=== PATIENT | male | born 1965 | race Caucasian/White ===

== ENCOUNTER → 2017-04-11 | Outpatient (CLI) | payer OTHER ==
[2017-04-12 11:45] LABS: White-Faced Hornet IgE 2.73 kU/L (<0.35); White-Faced Hornet IgE Class CLASS II
[2017-04-12 11:46] LABS: Yellow Jacket IgE Class CLASS II
[2017-04-12 11:47] LABS: Paper Wasp IgE 2.73 kU/L (<0.35); Paper Wasp IgE Class CLASS II
[2017-04-12 11:48] LABS: Honey IgE <0.35 kU/L (<0.35); Honey IgE Class CLASS 0; Yellow Hornet IgE 1.15 kU/L (<0.35); Yellow Hornet IgE Class CLASS II
== END | disposition home or self-care (01) ==
LOC: LABWHC1 14:33
PROVIDERS: ATTEND Allergy & Immunology
DX: T63.481A Toxic effect of venom of other arthropod, accidental (unintentional), initial encounter (principal)
CPT/HCPCS: 36415; 86003

== ENCOUNTER 2018-02-08 18:52 | Emergency (ER) | payer OTHER ==
[2018-02-08 19:10] VITALS: BP 172/67; PULSE 107; RESP 18; TEMP 97.8
[2018-02-08] MEDS ORDERED: HYDROcodone/APAP 5-325MG 1 EACH TAB PO STA (19:11)
--- NOTE | 2018-02-08 19:32 | XR ---
EXAMINATION TYPE: XR finger RT DATE OF EXAM: 02/08/2018 COMPARISON: NONE HISTORY: Laceration TECHNIQUE: 3 views FINDINGS: I see no fracture nor dislocation. There are few soft tissue air bubbles at the base of the proximal phalanx consistent with laceration. I see no radiopaque foreign body. IMPRESSION: Soft tissue air. No fracture seen.
--- NOTE | 2018-02-08 19:32 | ED ---
General Adult HPI - General Chief complaint: Wound/Laceration Stated complaint: LACERATION RT THUMB Time Seen by Provider: 02/08/18 18:57 Source: patient, RN notes reviewed Mode of arrival: ambulatory Limitations: no limitations - History of Present Illness Initial comments: 52-year-old male presents to the emergency department for chief complaint of laceration to the right thumb 1 hour. Patient states he was using a hole saw while remodeling his kitchen when it cut the dorsal aspect of his right thumb. Patient states it is painful but he is able to move the thumb. Patient states his tetanus is up to date. Patient denies any other injuries from the hole saw. Patient states he came immediately to the emergency department. He has not yet cleaned it out or taken anything for pain besides Motrin. Patient denies any other complaints at this time including shortness of breath, chest pain, abdominal pain, nausea or vomiting. - Related Data Allergies Allergy/AdvReac Type Severity Reaction Status Date / Time iodine Allergy Unknown Verified 02/08/18 19:05 Review of Systems ROS Statement: Those systems with pertinent positive or pertinent negative responses have been documented in the HPI. ROS Other: All systems not noted in ROS Statement are negative. Past Medical History Past Medical History: Dementia, Hyperlipidemia, Hypertension Additional Past Medical History / Comment(s): restless leg syndrome History of Any Multi-Drug Resistant Organisms: None Reported Past Surgical History: Adenoidectomy, Bowel Resection, Tonsillectomy Past Psychological History: No Psychological Hx Reported Smoking Status: Never smoker Past Alcohol Use History: Occasional Past Drug Use History: None Reported General Exam Limitations: no limitations Respiratory exam: Present: normal lung sounds bilaterally. Absent: respiratory distress, wheezes, rales, rhonchi, stridor Cardiovascular Exam: Present: regular rate, normal rhythm, normal heart sounds. Absent: systolic murmur, diastolic murmur, rubs, gallop, clicks Extremities exam: Present: full ROM (Full range of motion of the right thumb), tenderness (Tenderness of the right thumb), normal capillary refill (Refill less than 2 seconds in the right thumb. Radial pulse 2+), other (4 cm laceration to the middle phalanx of the right thumb. Deep structures intact.). Absent: joint swelling Course Vital Signs 02/08/18 19:07 Temperature 97.8 F Pulse Rate 107 H Respiratory 18 Rate Blood Pressure 172/67 O2 Sat by Pulse 97 Oximetry Procedures - Procedures Initial comment: Body area: Dorsal right thumb Laceration length: 4 cm Foreign bodies: no foreign bodies Tendon involvement: none Nerve involvement: none Vascular damage: no Anesthesia: local infiltration Local anesthetic: 4 mL 1% lidocaine Preparation: Patient was prepped and draped in the usual sterile fashion. Irrigation solution: saline Irrigation method: Saline jet lavage Skin closure:5-0 Ethilon using sterile technique Number of sutures: 9 Technique: interupted Dressing: antibiotic ointment/ gauze Patient tolerance: Patient tolerated the procedure well with no immediate complications. Medical Decision Making - Medical Decision Making 52-year-old male presents to the emergency department for a chief complaint of laceration of the right dorsal thumb. Patient states it happened about an hour ago when he was working with a hole saw. Patient states his tetanus is up to date. On exam neurovascular intact and patient has range of motion of the right thumb. Patient is left-handed. X-ray was performed which showed no acute fractures or dislocations. The laceration was soaked with soap and water and irrigated with saline jet lavage. It was sutured with 9 simple interrupted sutures. Patient will return in 10 days to have suture removed. He will return earlier if he notices any signs of infection or worsening symptoms. 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 Disposition Clinical Impression: Laceration Disposition: HOME SELF-CARE Condition: Good Instructions: Care For Your Stitches (ED), Laceration (ED) Additional Instructions: Please return to the emergency Department if he notices any signs of infection or worsening symptoms. Otherwise follow-up with primary care provider. Take Motrin or Tylenol for pain relief. Return in 10 days to have sutures removed. Is patient prescribed a controlled substance at d/c from ED?: No Referrals: Evin Rodriguez MD [Primary Care Provider] - 1-2 days Time of Disposition: 20:31
== END 2018-02-08 20:48 | disposition home or self-care (01) ==
LOC: EC 18:52
DX: S61.011A Laceration without foreign body of right thumb without damage to nail, initial encounter (principal); Z91.048 Other nonmedicinal substance allergy status; W26.8XXA Contact with other sharp object(s), not elsewhere classified, initial encounter; Y93.89 Activity, other specified; Y92.000 Kitchen of unspecified non-institutional (private) residence as the place of occurrence of the external cause
CPT/HCPCS: 12002; 99283

== ENCOUNTER → 2018-05-22 | Outpatient (CLI) | payer OTHER ==
--- NOTE | 2018-05-22 13:44 | EST ---
EXERCISE STRESS DATE OF SERVICE: May 22, 2018. INDICATION: Chest discomfort. AGE: 52 SEX: M HT: 5 feet 8 inches WT: 200 PROTOCOL: Stress Echo STAGE: III DURATION OF EXERCISE: 9:31 HEART RATE REST: 81 BLOOD PRESSURE REST: 123/71 MAXIMUM HEART RATE ACHIEVED: 152 MAXIMUM BLOOD PRESSURE: 186/110 85% MPHR: 144 100% MPHR: 169 METS: 11.1 CLINICAL INFORMATION: STRESS DATA: Pretesting physical examination showed a heart rate of 81, pressure is 123/71 mmHg. Baseline EKG showed sinus rhythm. The patient exercised on the treadmill according to Mike protocol for a total of 9 minutes and achieved 11.1 METS. Max heart rate was 152, which is about 89% of maximum predicted heart rate. Maximum blood pressure was 186/110 mmHg. Clinically, the patient did not have any symptoms of chest pain or chest discomfort during the testing or recovery. The EKG did not show any significant ST or T-wave abnormalities concerning for ischemia. ECHOCARDIOGRAM IMAGES: On echocardiogram images from parasternal long axis view, parasternal short axis view, apical 4 chamber and apical 2 chamber view were obtained as a baseline images, at peak heart rate, as well as on recovery. The echocardiogram images showed good augmentation in the left ventricular systolic function without any evidence of wall motion abnormalities concerning for ischemia. CONCLUSION: 1. Excellent exercise capacity. 2. Normal EKG in response to exercise. 3. Normal echocardiogram in response to exercise. 4. Essentially normal stress echocardiogram for the patient. MMODL / IJN: [id number] /
== END | disposition home or self-care (01) ==
LOC: RADNMMAIN 08:53
PROVIDERS: ATTEND Family Medicine
DX: E78.5 Hyperlipidemia, unspecified (principal)
CPT/HCPCS: 93351

== ENCOUNTER 2020-01-08 12:40 | Emergency (ER) | payer OTHER ==
[2020-01-08] MEDS ORDERED: SODIUM CHLORIDE 0.9% 500 ML 500 ML IV STA (13:28)
[2020-01-08 13:43] LABS: Basophils # (A) 0.1 k/uL (0-0.2); Basophils % (A) 1 %; Eosinophils # (A) 0.2 k/uL (0-0.7); Eosinophils % (A) 3 %; HCT 49.4 % (39.0-53.0); HGB 16.9 gm/dL (13.0-17.5); Lymphocytes # (A) 1.8 k/uL (1.0-4.8); Lymphocytes % (A) 26 %; MCH 33.3 pg (25.0-35.0); MCHC 34.3 g/dL (31.0-37.0); MCV 97.2 fL (80.0-100.0); Mean Platelet Volume 8.4; Monocytes # (A) 0.6 k/uL (0-1.0); Monocytes % (A) 9 %; Neutrophils % (A) 59 %; Platelet Count 186 k/uL (150-450); RBC 5.09 m/uL (4.30-5.90); RDW 12.6 % (11.5-15.5); WBC 6.8 k/uL (3.8-10.6)
[2020-01-08 14:07] LABS: ALT 28 U/L (4-49); AST 28 U/L (17-59); African American GFR (CKD) >90 (>60 ml/min/1.73 sqM); Albumin 4.6 g/dL (3.5-5.0); Alkaline Phosphatase 67 U/L (38-126); Anion Gap 11 mmol/L; Blood Urea Nitrogen 18 mg/dL (9-20); Calcium 9.8 mg/dL (8.4-10.2); Carbon Dioxide 22 mmol/L (22-30); Chloride 104 mmol/L (98-107); Glucose 145 mg/dL (74-99); Magnesium 2.1 mg/dL (1.6-2.3); Non-African American GFR(CKD) >90 (>60 ml/min/1.73 sqM); Potassium 4.3 mmol/L (3.5-5.1); Sodium 137 mmol/L (137-145); Total Bilirubin 0.3 mg/dL (0.2-1.3); Total Protein 7.4 g/dL (6.3-8.2)
--- NOTE | 2020-01-08 14:11 | XR ---
EXAMINATION TYPE: XR chest 1V DATE OF EXAM: 01/08/2020 COMPARISON: NONE HISTORY: Difficulty breathing TECHNIQUE: Single frontal view of the chest is obtained. FINDINGS: There is no focal air space opacity, pleural effusion, or pneumothorax seen. The cardiac silhouette size is within normal limits. The osseous structures are intact. There are overlying car diac leads. IMPRESSION: No acute process.
--- NOTE | 2020-01-08 14:20 | ED ---
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 Patient states given this patient's Recent Ctr., Hospital none of which were positive for COVID as as of now. Patient states he has been sick for 3 weeks been on antibiotics and it has not helped so his primary medical care doctor sent into the emergency department. Patient denies any fever or chills. Patient states he is feeling short of breath. Patient states he does have chest pain with coughing patient states he has not coughed up any sputum. Patient denies any palpitations per patient denies abdominal pain patient denies nausea vomiting diarrhea. His any swelling to the legs or calf tenderness. - Related Data Home Medications Medication Instructions Recorded Confirmed Albuterol Sulfate [Proair Hfa] 1 - 2 puff INHALATION Q6HR PRN 01/08/20 01/08/20 Ascorbic Acid [Vitamin C] 1,000 mg PO HS 01/08/20 01/08/20 Atorvastatin [Lipitor] 40 mg PO HS 01/08/20 01/08/20 Cetirizine HCl [Zyrtec] 10 mg PO DAILY 01/08/20 01/08/20 Cholecalciferol [Vitamin D3 (25 1,000 unit PO DAILY 01/08/20 01/08/20 Mcg = 1000 Iu)] Dapagliflozin Propanediol [Farxiga] 10 mg PO HS 01/08/20 01/08/20 Insulin Detemir [Levemir Flextouch] 40 units SQ HS 01/08/20 01/08/20 LORazepam [Ativan] 1 mg PO HS PRN 01/08/20 01/08/20 Lisinopril 20 mg PO DAILY 01/08/20 01/08/20 Montelukast Sodium [Singulair] 10 mg PO HS 01/08/20 01/08/20 Oxymetazoline 0.05% Nasl [place] 2 spray EA NOSTRIL HS PRN 01/08/20 01/08/20 [Afrin 0.05% Nasal [place]] Saw [place] 160 mg PO BID 01/08/20 01/08/20 Ubidecarenone [Co Q-10] 100 mg PO HS 01/08/20 01/08/20 metFORMIN HCL ER [Glucophage Xr] 500 mg PO BID 01/08/20 01/08/20 sitaGLIPtin [Januvia] 100 mg PO HS 01/08/20 01/08/20 Allergies Allergy/AdvReac Type Severity Reaction Status Date / Time iodine Allergy Unknown Verified 01/08/20 14:47 Review of Systems ROS Statement: Those systems with pertinent positive or pertinent negative responses have been documented in the HPI. ROS Other: All systems not noted in ROS Statement are negative. Past Medical History Past Medical History: Diabetes Mellitus, Hyperlipidemia, Hypertension Additional Past Medical History / Comment(s): restless leg syndrome History of Any Multi-Drug Resistant Organisms: None Reported Past Surgical History: Adenoidectomy, Bowel Resection, Tonsillectomy Past Psychological History: No Psychological Hx Reported Smoking Status: Never smoker Past Alcohol Use History: Occasional Past Drug Use History: None Reported General Exam - General Exam Comments Initial Comments: GENERAL: Patient is well-developed and well-nourished. Patient is nontoxic and well- hydrated and is in no acute distress. ENT: Neck is soft and supple. No significant lymphadenopathy is noted. Oropharynx is clear. Moist mucous membranes. Neck has full range of motion without eliciting any pain. EYES: The sclera were anicteric and conjunctiva were pink and moist. Extraocular movements were intact and pupils were equal round and reactive to light. Eyelids were unremarkable. PULMONARY: Unlabored respirations. Good breath sounds bilaterally. No audible rales rhonchi or wheezing was noted. CARDIOVASCULAR: There is a regular rate and rhythm without any murmurs gallops or rubs. ABDOMEN: Soft and nontender with normal bowel sounds. SKIN: Skin is clear with no lesions or rashes and otherwise unremarkable. NEUROLOGIC: Patient is alert and oriented x3. Cranial nerves II through XII are grossly intact. Motor and sensory are also intact. Normal speech, volume and content. Symmetrical smile. MUSCULOSKELETAL: Normal extremities with adequate strength and full range of motion. LYMPHATICS: No significant lymphadenopathy is noted PSYCHIATRIC: Normal psychiatric evaluation. Limitations: no limitations Course Vital Signs 01/08/20 01/08/20 12:41 15:09 Temperature 98.3 F 97.8 F Pulse Rate 95 90 Respiratory 20 18 Rate Blood Pressure 169/101 128/86 O2 Sat by Pulse 98 100 Oximetry Medical Decision Making - Medical Decision Making EKG shows normal sinus rhythm at 92 bpm NC interval 146 QRS is 78 QT interval 360 QTC is 445. Patient's EKG shows no ST segment elevation or depression. Chest x-ray shows no acute abnormality. - Lab Data Result diagrams: 01/08/20 13:15 01/08/20 13:15 Lab Results 01/08/20 01/08/20 01/08/20 Range/Units 13:15 13:15 13:15 WBC 6.8 (3.8-10.6) k/uL RBC 5.09 (4.30-5.90) m/uL Hgb 16.9 (13.0-17.5) gm/dL Hct 49.4 (39.0-53.0) % MCV 97.2 (80.0-100.0) fL MCH 33.3 (25.0-35.0) pg MCHC 34.3 (31.0-37.0) g/dL RDW 12.6 (11.5-15.5) % Plt Count 186 (150-450) k/uL Neutrophils % 59 % Lymphocytes % 26 % Monocytes % 9 % Eosinophils % 3 % Basophils % 1 % Neutrophils # 4.0 (1.3-7.7) k/uL Lymphocytes # 1.8 (1.0-4.8) k/uL Monocytes # 0.6 (0-1.0) k/uL Eosinophils # 0.2 (0-0.7) k/uL Basophils # 0.1 (0-0.2) k/uL PT 9.8 (9.0-12.0) sec INR 0.9 (<1.2) APTT 24.7 (22.0-30.0) sec D-Dimer 0.23 (<0.60) mg/L FEU Sodium 137 (137-145) mmol/L Potassium 4.3 (3.5-5.1) mmol/L Chloride 104 (98-107) mmol/L Carbon Dioxide 22 (22-30) mmol/L Anion Gap 11 mmol/L BUN 18 (9-20) mg/dL Creatinine 0.83 (0.66-1.25) mg/dL Est GFR (CKD-EPI)AfAm >90 (>60 ml/min/1.73 sqM) Est GFR (CKD-EPI)NonAf >90 (>60 ml/min/1.73 sqM) Glucose 145 H (74-99) mg/dL Plasma Lactic Acid Eddie (0.7-2.0) mmol/L Calcium 9.8 (8.4-10.2) mg/dL Magnesium 2.1 (1.6-2.3) mg/dL Total Bilirubin 0.3 (0.2-1.3) mg/dL AST 28 (17-59) U/L ALT 28 (4-49) U/L Alkaline Phosphatase 67 (38-126) U/L Troponin I (0.000-0.034) ng/mL NT-Pro-B Natriuret Pep pg/mL Total Protein 7.4 (6.3-8.2) g/dL Albumin 4.6 (3.5-5.0) g/dL Group A Strep Rapid (Negative) 01/08/20 01/08/20 01/08/20 Range/Units 13:15 13:15 13:15 WBC (3.8-10.6) k/uL RBC (4.30-5.90) m/uL Hgb (13.0-17.5) gm/dL Hct (39.0-53.0) % MCV (80.0-100.0) fL MCH (25.0-35.0) pg MCHC (31.0-37.0) g/dL RDW (11.5-15.5) % Plt Count (150-450) k/uL Neutrophils % % Lymphocytes % % Monocytes % % Eosinophils % % Basophils % % Neutrophils # (1.3-7.7) k/uL Lymphocytes # (1.0-4.8) k/uL Monocytes # (0-1.0) k/uL Eosinophils # (0-0.7) k/uL Basophils # (0-0.2) k/uL PT (9.0-12.0) sec INR (<1.2) APTT (22.0-30.0) sec D-Dimer (<0.60) mg/L FEU Sodium (137-145) mmol/L Potassium (3.5-5.1) mmol/L Chloride (98-107) mmol/L Carbon Dioxide (22-30) mmol/L Anion Gap mmol/L BUN (9-20) mg/dL Creatinine (0.66-1.25) mg/dL Est GFR (CKD-EPI)AfAm (>60 ml/min/1.73 sqM) Est GFR (CKD-EPI)NonAf (>60 ml/min/1.73 sqM) Glucose (74-99) mg/dL Plasma Lactic Acid Eddie 1.6 (0.7-2.0) mmol/L Calcium (8.4-10.2) mg/dL Magnesium (1.6-2.3) mg/dL Total Bilirubin (0.2-1.3) mg/dL AST (17-59) U/L ALT (4-49) U/L Alkaline Phosphatase (38-126) U/L Troponin I <0.012 (0.000-0.034) ng/mL NT-Pro-B Natriuret Pep 31 pg/mL Total Protein (6.3-8.2) g/dL Albumin (3.5-5.0) g/dL Group A Strep Rapid (Negative) 01/08/20 Range/Units 13:15 WBC (3.8-10.6) k/uL RBC (4.30-5.90) m/uL Hgb (13.0-17.5) gm/dL Hct (39.0-53.0) % MCV (80.0-100.0) fL MCH (25.0-35.0) pg MCHC (31.0-37.0) g/dL RDW (11.5-15.5) % Plt Count (150-450) k/uL Neutrophils % % Lymphocytes % % Monocytes % % Eosinophils % % Basophils % % Neutrophils # (1.3-7.7) k/uL Lymphocytes # (1.0-4.8) k/uL Monocytes # (0-1.0) k/uL Eosinophils # (0-0.7) k/uL Basophils # (0-0.2) k/uL PT (9.0-12.0) sec INR (<1.2) APTT (22.0-30.0) sec D-Dimer (<0.60) mg/L FEU Sodium (137-145) mmol/L Potassium (3.5-5.1) mmol/L Chloride (98-107) mmol/L Carbon Dioxide (22-30) mmol/L Anion Gap mmol/L BUN (9-20) mg/dL Creatinine (0.66-1.25) mg/dL Est GFR (CKD-EPI)AfAm (>60 ml/min/1.73 sqM) Est GFR (CKD-EPI)NonAf (>60 ml/min/1.73 sqM) Glucose (74-99) mg/dL Plasma Lactic Acid Eddie (0.7-2.0) mmol/L Calcium (8.4-10.2) mg/dL Magnesium (1.6-2.3) mg/dL Total Bilirubin (0.2-1.3) mg/dL AST (17-59) U/L ALT (4-49) U/L Alkaline Phosphatase (38-126) U/L Troponin I (0.000-0.034) ng/mL NT-Pro-B Natriuret Pep pg/mL Total Protein (6.3-8.2) g/dL Albumin (3.5-5.0) g/dL Group A Strep Rapid Negative (Negative) Disposition Clinical Impression: Upper respiratory tract infection Disposition: HOME SELF-CARE Condition: Good Instructions (If sedation given, give patient instructions): Upper Respiratory Infection (ED) Is patient prescribed a controlled substance at d/c from ED?: No Referrals: Seymour Valenzuela MD [Primary Care Provider] - 1-2 days Time of Disposition: 15:24
[2020-01-08 14:40] LABS: D-Dimer 0.23 mg/L FEU (<0.60); INR 0.9 (<1.2); Partial Thromboplastin Time 24.7 sec (22.0-30.0); Prothrombin Time 9.8 sec (9.0-12.0)
[2020-01-08 15:10] VITALS: BP 128/86; PULSE 90; RESP 18; TEMP 97.8
== END 2020-01-08 15:30 | disposition home or self-care (01) ==
LOC: EC 12:40
DX: J06.9 Acute upper respiratory infection, unspecified (principal); E11.9 Type 2 diabetes mellitus without complications; I10 Essential (primary) hypertension; E78.5 Hyperlipidemia, unspecified; Z79.4 Long term (current) use of insulin; Z79.899 Other long term (current) drug therapy; Z91.048 Other nonmedicinal substance allergy status
CPT/HCPCS: 36415; 71045; 80053; 83605; 83735; 83880; 84484; 85025; 85379; 85610; 85730; 87081; 87430; 93005; 96360; 99284

== ENCOUNTER → 2020-01-17 | Outpatient (CLI) | payer OTHER ==
--- NOTE | 2020-01-17 16:10 | XR ---
EXAMINATION TYPE: XR chest 2V DATE OF EXAM: 01/17/2020 COMPARISON: 01/08/2020 HISTORY: Shortness of breath TECHNIQUE: Frontal and lateral views of the chest are obtained. FINDINGS: Scattered senescent parenchymal changes noted. Hyperinflation compatible with COPD. No evidence for infiltrate. No evidence for atelectasis. Heart size is stable. Mediastinal structures are stable and grossly unremarkable. No evidence for hilar prominence. Degenerative changes dorsal spine. IMPRESSION: 1. No evidence for acute pulmonary disease.
== END | disposition home or self-care (01) ==
LOC: RADXRMAIN 15:45
PROVIDERS: ATTEND Family Medicine
DX: J18.9 Pneumonia, unspecified organism (principal)
CPT/HCPCS: 71046

== ENCOUNTER → 2020-11-21 | Outpatient (CLI) | payer OTHER ==
--- NOTE | 2020-11-21 16:33 | XR ---
EXAMINATION TYPE: XR chest 2V DATE OF EXAM: 11/21/2020 COMPARISON: Chest x-ray 01/17/2020 HISTORY: Pneumonia, chest pain TECHNIQUE: Frontal and lateral views of the chest are obtained. FINDINGS: There is no focal air space opacity, pleural effusion, or pneumothorax seen. The cardiac silhouette size is within normal limits. The osseous structures are intact, there is thoracic spond ylosis. IMPRESSION: No acute cardiopulmonary process.
== END | disposition home or self-care (01) ==
LOC: RADXRMAIN 15:35
PROVIDERS: ATTEND Internal Medicine
DX: J18.9 Pneumonia, unspecified organism (principal)
CPT/HCPCS: 71046

== ENCOUNTER → 2021-08-28 | Outpatient (CLI) | payer OTHER ==
[~2021-08-28] MED LIST: ACETAMINOPHEN TAB 500 MG TAB PO STA; CASIRIVIMAB/IMDEVIMAB (EUA) 1,200 MG in SODIUM CHLORIDE 0.9% 100 ML IVPB ONE; SODIUM CHLORIDE 0.9% 50 ML IVPB ONE; SODIUM CHLORIDE 0.9% 500 ML 500 ML in EMPTY BAG 1 BAG IV PRN
--- NOTE | 2021-08-28 09:19 | ED ---
URI HPI - General Chief Complaint: Upper Respiratory Infection Stated Complaint: COVID+ / Wants antibodies Time Seen by Provider: 08/28/21 09:08 Source: patient, RN notes reviewed Mode of arrival: ambulatory Limitations: no limitations - History of Present Illness Initial Comments: 55-year-old presented to emergency department chief complaint of COVID-19 positive. Patient states he tested positive yesterday. Patient states he started symptoms to tonight his parents also had a recent has a positive or COVID-19. Patient states he was admitted last December for COVID-19 at that time. Patient states that a mild cough congestion shortness of breath. No nausea vomiting diarrhea. Patient has been using his inhalers at home as uses daily. - Related Data Home Medications Medication Instructions Recorded Confirmed Albuterol Sulfate [Proair Hfa] 1 - 2 puff INHALATION Q6HR PRN 01/08/20 01/08/20 Ascorbic Acid [Vitamin C] 1,000 mg PO HS 01/08/20 01/08/20 Atorvastatin [Lipitor] 40 mg PO HS 01/08/20 01/08/20 Cetirizine HCl [Zyrtec] 10 mg PO DAILY 01/08/20 01/08/20 Cholecalciferol [Vitamin D3 (25 1,000 unit PO DAILY 01/08/20 01/08/20 Mcg = 1000 Iu)] Dapagliflozin Propanediol [Farxiga] 10 mg PO HS 01/08/20 01/08/20 Insulin Detemir [Levemir Flextouch] 40 units SQ HS 01/08/20 01/08/20 LORazepam [Ativan] 1 mg PO HS PRN 01/08/20 01/08/20 Montelukast Sodium [Singulair] 10 mg PO HS 01/08/20 01/08/20 Oxymetazoline 0.05% Nasl [place] 2 spray EA NOSTRIL HS PRN 01/08/20 01/08/20 [Afrin 0.05% Nasal [place]] Saw [place] 160 mg PO BID 01/08/20 01/08/20 Ubidecarenone [Co Q-10] 100 mg PO HS 01/08/20 01/08/20 lisinopriL 20 mg PO DAILY 01/08/20 01/08/20 metFORMIN HCL ER [Glucophage Xr] 500 mg PO BID 01/08/20 01/08/20 sitaGLIPtin [Januvia] 100 mg PO HS 01/08/20 01/08/20 Allergies Allergy/AdvReac Type Severity Reaction Status Date / Time iodine Allergy Unknown Verified 08/28/21 09:05 Review of Systems ROS Statement: Those systems with pertinent positive or pertinent negative responses have been documented in the HPI. ROS Other: All systems not noted in ROS Statement are negative. Past Medical History Past Medical History: Diabetes Mellitus, Hyperlipidemia, Hypertension Additional Past Medical History / Comment(s): restless leg syndrome History of Any Multi-Drug Resistant Organisms: None Reported Past Surgical History: Adenoidectomy, Bowel Resection, Tonsillectomy Past Psychological History: No Psychological Hx Reported Smoking Status: Never smoker Past Alcohol Use History: Occasional Past Drug Use History: None Reported General Exam Limitations: no limitations General appearance: alert, in no apparent distress Head exam: Present: atraumatic, normocephalic, normal inspection Eye exam: Present: normal appearance, PERRL, EOMI. Absent: scleral icterus, conjunctival injection, periorbital swelling ENT exam: Present: normal exam, normal oropharynx, mucous membranes moist Neck exam: Present: normal inspection, full ROM. Absent: tenderness, meningismus, lymphadenopathy Respiratory exam: Present: normal lung sounds bilaterally. Absent: respiratory distress, wheezes, rales, rhonchi, stridor Cardiovascular Exam: Present: normal rhythm, tachycardia, normal heart sounds. Absent: systolic murmur, diastolic murmur, rubs, gallop, clicks Course Vital Signs 08/28/21 09:02 Temperature 99.7 F H Pulse Rate 103 H Respiratory 18 Rate Blood Pressure 135/79 O2 Sat by Pulse 94 L Oximetry Medical Decision Making - Medical Decision Making Patient is in no apparent distress, but really shows evidence of fever which was treated, patient was treated with on-call and otherwise be discharged in stable condition. Disposition Clinical Impression: COVID-19 Disposition: HOME SELF-CARE Condition: Stable Instructions (If sedation given, give patient instructions): Coronavirus Disease 2019 (COVID-19) Additional Instructions: Please return to the Emergency Department if symptoms worsen or any other concerns. Is patient prescribed a controlled substance at d/c from ED?: No Referrals: Seymour Valenzuela MD [Primary Care Provider] - 1-2 days Time of Disposition: 09:19
[2021-08-28 09:49] VITALS: TEMP 98.2
[2021-08-28 11:26] VITALS: BP 145/78; PULSE 98; RESP 16
== END ==
LOC: EC 09:02 → PROCWHC3 09:02 → EDSTATUS 09:37
PROVIDERS: ATTEND Physician Assistant
DX: U07.1 COVID-19 (principal); E66.9 Obesity, unspecified; Z68.28 Body mass index [BMI] 28.0-28.9, adult; Z91.041 Radiographic dye allergy status
CPT/HCPCS: 96360; Q0243; M0243

== ENCOUNTER → 2021-11-09 | Outpatient (CLI) | payer BC, OTHER | END | disposition home or self-care (01) | LOC: RADCTMAIN 11:44 | PROVIDERS: ATTEND Internal Medicine | DX: Z53.9 Procedure and treatment not carried out, unspecified reason (principal) ==

== ENCOUNTER → 2021-11-10 | Outpatient (CLI) | payer BC, OTHER ==
[2021-11-10 08:30] LABS: African American GFR (CKD) >90 (>60 ml/min/1.73 sqM); Blood Urea Nitrogen 19 mg/dL (9-20); Non-African American GFR(CKD) >90 (>60 ml/min/1.73 sqM)
--- NOTE | 2021-11-10 08:57 | CT ---
EXAMINATION TYPE: CT angio chest DATE OF EXAM: 11/10/2021 COMPARISON: None HISTORY: SOB CT DLP: 469.4 mGycm CONTRAST: CT chest with contrast and 3D reconstruction with MIP imaging is performed with IV Contrast, patient injected with 100 mL of Isovue 370. Contrast-enhanced CT of the chest was performed through the course of the pulmonary arteries with vidal g and mediastinal window settings submitted. 3D reconstruction with MIP imaging was also performed. PULMONARY ARTERIES: There is a filling defect within the left upper lobe pulmonary arterial branch fe lt to reflect pulmonary embolism. Please note timing of the contrast bolus does limit evaluation some what. Remaining pulmonary arteries appear to be patent at this time. LUNGS: The lungs are clear and free of infiltrate. No evidence for atelectasis. No pulmonary nodule or mass is detected. No pleural effusion. MEDIASTINUM: Thoracic aorta is of normal caliber,however, evaluation is limited given timing of the contrast bolus. If there is concern for thoracic aortic pathology consider BITA. Correlate clinicall y . The heart is not enlarged. No evidence for mediastinal mass. No mediastinal lymph nodes greater than 1cm. HILAR STRUCTURES: No evidence for mass. No hilar lymph nodes greater than 1 cm. UPPER ABDOMEN: No significant abnormality is seen. IMPRESSION: 1. There is a filling defect within the left upper lobe pulmonary arterial branch felt to reflect pu lmonary embolism. Please note timing of the contrast bolus does limit evaluation somewhat.
== END | disposition home or self-care (01) ==
LOC: RADCTMAIN 07:43
PROVIDERS: ATTEND Family Medicine
DX: I26.99 Other pulmonary embolism without acute cor pulmonale (principal); R10.9 Unspecified abdominal pain
CPT/HCPCS: 82565; 84520; 71275; 36415; Q9967

== ENCOUNTER → 2021-12-28 | Outpatient (CLI) | payer BC ==
--- NOTE | 2021-12-28 12:47 | CT ---
EXAMINATION TYPE: CT angio chest DATE OF EXAM: 12/28/2021 COMPARISON: 11/10/2021 HISTORY: 56-year-old male I26.99, Chest pain, history of PE TECHNIQUE: Contiguous axial scanning of the chest performed with IV Contrast, patient injected with 1 00 mL of Isovue 370. Coronal/sagittal MIP reconstructions performed. Patient was immediately rescanne d in attempts to catch the bolus. CT DLP: 982.9 mGycm Automated exposure control for dose reduction was used. FINDINGS: Heart normal size with small anterior pericardial effusion measuring up to 9 mm, unchanged. LAD coron isabelle artery calcifications are present. Borderline ectasia aortic root at 3.5 cm and ascending aorta at 3.5 cm. Bovine configuration to the a ortic arch. An 8 mm right infrahilar pulmonary nodule is unchanged. A 1.3 cm left hilar lymph node is unchanged. These are likely reactive/post inflammatory. Otherwise, no thoracic lymphadenopathy by CT size criter ia. Suboptimal contrast bolus with attenuation of 177 Hounsfield units. There are admixture artifacts not ed throughout the pulmonary tree. No definite pulmonary embolism is seen. No consolidation or pleural effusion. Tiny hiatal hernia. Visualized colonic diverticulosis. Tiny cyst central right hepatic dome. Bones: [facility] in the mid and lower thoracic spine. IMPRESSION: 1. SUBOPTIMAL CONTRAST BOLUS. HOWEVER, NO DEFINITE PULMONARY EMBOLUS IS SEEN. 2. NO ACUTE PULMONARY PROCESS. MILDLY ENLARGED 1.3 CM LEFT HILAR LYMPH NODE IS STABLE FOR 2 MONTHS. A DDITIONAL 9-12 MONTH FOLLOW-UP CT TO ENSURE MORE LONG-TERM STABILITY. 3. LAD CORONARY ARTERY CALCIFICATIONS. 4. TINY HIATAL HERNIA AND COLONIC DIVERTICULOSIS.
== END | disposition home or self-care (01) ==
LOC: RADCTMAIN 11:51
PROVIDERS: ATTEND Internal Medicine
DX: R07.9 Chest pain, unspecified (principal); I25.10 Atherosclerotic heart disease of native coronary artery without angina pectoris; K44.9 Diaphragmatic hernia without obstruction or gangrene; K57.30 Diverticulosis of large intestine without perforation or abscess without bleeding
CPT/HCPCS: 71275; Q9967